=== PATIENT | male | born 1960 | race Caucasian/White ===

== ENCOUNTER → 2017-09-24 | Outpatient (CLI) | payer OTHER ==
--- NOTE | 2017-09-24 11:17 | US ---
History: Right upper quadrant pain Study: Ultrasound of the right upper quadrant of the abdomen Comparison: None Findings: The liver is normal in size without mass. There is a single stone and there is sludge in the gallbladder with the gallbladder wall measuring 3. 4 mm in thickness. The common hepatic duct measures 4.9 mm diameter. The stone measures approximately 7 mm diameter with acoustic shadowing. There is no free fluid. The right kidney measures 14.43 x 5.24 x 6 cm with a 5 cm cyst off the lower pole.. There is no hydro nephrosis. The visualized pancreas is unremarkable. Impression: Cholelithiasis and sludge in a thickened gallbladder wall consistent with cholecystitis. Reported By:
== END ==
LOC: RAD 10:11
PROVIDERS: ATTEND Nurse Practitioner Family
DX: R10.11 Right upper quadrant pain (principal); K80.80 Other cholelithiasis without obstruction
CPT/HCPCS: 76705